=== PATIENT | male | born 2000 | race Hispanic/Latino ===

== ENCOUNTER 2024-05-31 14:03 | Emergency (ER) | payer BC ==
[~2024-05-31] VITALS: Ht 177.8 cm; Wt 99.8 kg
--- NOTE | 2024-05-31 14:15 | ERN ---
ED Note History of Present Illness Stated Complaint: CHEST PAINS Chief Complaint: Chest Wall Pain Time Seen by MD: 14:11 Time Seen by Midlevel: 14:12 Dictation: Mr Martin is a 23 year old male with no reported chronic health issues who presented to the Emergency Department this afternoon for evaluation of chest pain. He states that for the past two days he has been having episodes of anterior chest pain. He states that he has sharp chest pain which makes him short of breath. He states that he had similar symptoms last week. He denies having fever, chills, cough, palpitations, edema, abdominal pain, nausea, vom iting, diarrhea, dysuria, diaphoresis, headache, or dizziness. BP at triage elevated to 175/99. His mother states that they have a family history of hypertension and a Lesvia has been told in the past that he has elevated readings. He is not currently taking any medications for this. Allergies: Coded Allergies: No Known Allergies (Unverified Allergy, Unknown, 05/31/24) Past Medical History Past Medical History: No Pertinent History Surgical History: None Surgical History Other: LT TESTTCLE, LT WRIST Family History: HTN Social History: Smokers (Never smoked), Drugs (Denies use of recreational drugs), Negative, Lives with family RN Note Reviewed/Agreed w/PFSH: Yes Review of System Dictation REVIEW OF SYSTEMS: CONSTITUTIONAL: Patient denies fevers, chills, sweats and weight changes. EYES: Patient denies any visual symptoms. EARS, NOSE, AND THROAT: No difficulties with hearing. No symptoms of rhinitis or sore throat. CARDIOVASCULAR: Patient denies palpitations, orthopnea and paroxysmal nocturnal dyspnea. Reports chest pain that is sharp occurring intermittently for the past two days. He states he had similar episodes last week. His mother states he has been told he had elevated blood pressure readings. RESPIRATORY: No dyspnea on exertion, no wheezing or cough. GI: No nausea, vomiting, diarrhea, constipation, abdominal pain, hematochezia or melena. : No urinary hesitancy or dribbling. No nocturia or urinary frequency. No abnormal urethral discharge. MUSCULOSKELETAL: No myalgias or arthralgias. NEUROLOGIC: No chronic headaches, no seizures. Patient denies numbness, tingling or weakness. PSYCHIATRIC: Patient denies problems with mood disturbance. No problems with anxiety. ENDOCRINE: No excessive urination or excessive thirst. DERMATOLOGIC: Patient denies any rashes or skin changes. Initial Vital Sign VS Vital Signs Date Time Temp Pulse Resp B/P (MAP) Pulse Ox O2 Delivery O2 Flow Rate FiO2 05/31/24 14:05 99.5 100 16 175/99 99 Room Air 0 05/31/24 16:07 21 Physical Exam Dictation Vital signs: Reviewed. Temp 99.5 Constitutional: No acute distress. Non-toxic appearing. Accompanied by mother Head/Face: Normocephalic, atraumatic. Eyes: Periorbital areas with no swelling, redness, or edema. Lids and lashes are normal. Conjunctival injection is absent. Sclera anicteric. Pupils equal, round, reactive to light. ENT: Pinnas intact and no signs of trauma or erythema. Ear canals clear and no discharge. TMs no erythema. No nasal discharge or bleeding noted. Oropharynx with no exudate, redness, swelling, masses, exudates, or evidence of obstruction. Uvula midline. Mucous membranes moist. Neck: Trachea midline, no masses palpated, and no cervical lymphadenopathy. No swelling. Supple, full range of motion. Chest/Axilla: No tenderness, no crepitus, no paradoxical movement, no retractions. Cardiovascular: Regular rate, regular rhythm, no murmur, no gallops. Symmetric pulses. No peripheral edema. BP elevated to 175/99. Twelve lead EKG reflects a sinus rhythm without ST elevation or depression. Respiratory: Respirations even and unlabored. Lung sounds clear; no wheezes, ra les or rhonchi. Room air SpO2 99% Gastrointestinal: Inspection is normal. No distention is appreciated. Bowel sounds are normal. No mass or organomegaly . There is no tenderness. No rebound. No rigidity. No voluntary or involuntary guarding. No Conklin's sign. Neurological: Normal speech, gross motor function intact, gross sensory function intact. No focal weakness/Paresthesia. Musculoskeletal/Extremities: All extremities have full range of motion, no pain or tenderness on palpation. Symmetric pulses. Integumentary: Intact. Skin is normal color, warm and dry. Cap refill less than 2 seconds. Results (Laboratory/Radiology) Laboratory/Radiology Laboratory Tests Test 05/31/24 14:21 05/31/24 15:00 Influenza Type A Antigen Negative For Type A Influenza Type B Antigen Negative For Type B SARS-CoV-2, RNA, NAAT NEGATIVE SARS CoV-2 White Blood Count 7.1 K/uL (4.8-10.8) Red Blood Count 5.16 MIL/uL (4.50-6.20) Hemoglobin 15.7 g/dL (14.0-18.0) Hematocrit 45.5 % (42-54) Mean Corpuscular Volume 88.2 fL (80-100) Mean Corpuscular Hemoglobin 30.4 pg (27.0-33.0) Mean Corpuscular Hemoglobin Concent 34.5 g/dL (32.0-36.0) Red Cell Distribution Width 11.6 % (11.0-15.5) Platelet Count 265 K/uL (130-400) Mean Platelet Volume 10.4 fL (7.5-10.5) Immature Granulocyte % (Auto) 0.3 % (0-1) Neutrophils (%) (Auto) 54.8 % (40.0-77.0) Lymphocytes (%) (Auto) 32.6 % (21.0-51.0) Monocytes (%) (Auto) 7.6 % (3.0-13.0) Eosinophils (%) (Auto) 4.0 % (0.0-8.0) Basophils (%) (Auto) 0.7 % (0.0-5.0) Neutrophils # (Auto) 3.9 K/uL (1.8-7.7) Lymphocytes # (Auto) 2.3 K/uL (1.0-4.8) Monocytes # (Auto) 0.5 K/uL (0.1-1.0) Eosinophils # (Auto) 0.28 K/uL (0.00-0.70) Basophils # (Auto) 0.05 K/uL (0.00-0.20) Absolute Immature Granulocyte (auto 0.02 K/uL (0-1) Nucleated Red Blood Cells 0.0 % (0.0-0.19) Sodium Level 141 mmol/L (136-145) Potassium Level 4.1 mmol/L (3.5-5.1) Chloride Level 102 mmol/L (101-111) Carbon Dioxide Level 34 mmol/L (21-32) H Blood Urea Nitrogen 12 mg/dL (7-18) Creatinine 1.0 mg/dL (0.5-1.3) Glomerular Filtration Rate Calc 110 mL/min (>90) Random Glucose 93 mg/dL (70-105) Total Calcium 9.0 mg/dL (8.5-10.1) Troponin I High Sensitivity < 4 ng/L (4-75) L Labs Reviewed?: Yes EKG Comment: EKG Interpretation: Time Reviewed:1413 Ventricular rate: [92] bpm MA Interval: 141 ms QRS duration: [address] segment elevation or depression. Clinical impression: sinus rhythm EKG Reviewed and interpreted by: Dr. Rosa Max X-RAY Comment: PATIENT: LESVIA MARTIN JR MR#: [id number] : 2000 SEX: M AGE: 23 LOCATION: [facility] ORDER 13 STATUS: REG ER REPORT#: [id number] SERVICE 12 REASON: chest pain/sob ORDERING PHYSICIAN: GINNA JIMENEZ NP PROCEDURE: CXR1VW - CHEST 1VW CHEST 1VW REASON: chest pain/sob COMPARISON: None. FINDINGS: Single view of the chest was obtained. Lungs are clear. Heart size is normal. There is no pulmonary vascular congestion. Mediastinum and bony thorax appear unremarkable. IMPRESSION: 1. Normal single view chest x-ray. DICTATED BY: PRAVIN CLARKE MD DATE: 05/31/241442 ELECTRONICALLY SIGNED BY: PRAVIN CLARKE MD DATE: 05/31/241444 ED Course ED Course Orders Procedure Category Date Status Time 12 Lead Ekg Tracing- EKG 05/31/24 Complete Technical 14:11 Chest 1vw RAD 05/31/24 Resulted 14:13 Influenza Type A & B, LAB 05/31/24 Complete Rapid 14:14 Covid Rna Naat LAB 05/31/24 Complete 14:14 Ketorolac PHA 05/31/24 Complete Tromethamine 30mg/Ml 14:30 Cbc With Differential LAB 05/31/24 Complete 14:51 Basic Metabolic Panel LAB 05/31/24 Complete 14:51 Troponin I High LAB 05/31/24 Complete Sensitivity 14:51 Current Medications Medications (Trade) Dose Ordered Sig/Ivory Route PRN Reason Start Time Stop Time Status Last Admin Dose Admin Ketorolac Tromethamine (toRADol) 30 mg ONCE ONCE IM 05/31/24 14:30 05/31/24 14:31 DC 05/31/24 14:31 Vital Signs Date Time Temp Pulse Resp B/P (MAP) Pulse Ox O2 Delivery O2 Flow Rate FiO2 05/31/24 16:07 98.6 74 20 119/87 100 Room Air* 0 21 05/31/24 14:05 99.5 100 16 175/99 99 Room Air 0 uneventful ED course. 12 lead EKG reflects a sinus rhythm without ST elevation. CXR clear. No elevation of WBC. No electrolyte derangement. Troponin negative. Valadez virus SARS antigen and influenza A/B negative. He received dose Toradol IM x 1. He denies CP or SOB. He was provided with copies of EKG, lab, and CXR to follow up with PCP. BP readings are elevated and he states that he has been told they were high in the past. He will follow up with PCP. HEART Score Response (Comments) Value History: Low suspicion (0) 0 EKG: Normal 0 Age: < 45yrs (0) 0 Risk Factors: No known risk factors (0) 0 Initial Troponin: Normal limit (0) 0 HEART Score Risk: Low Risk for MACE (1-3) Total 0 Medical Decision Making MDM MDM: Differential diagnosis: CAP, ACS, influenza, COVID Rationale: Tests considered and ordered secondary to shared decision making include: CXR, EKG, labs Previous outside records reviewed: Old ER visits. Risk of complication and/or morbidity or mortality of patient management: None Medications-Per medication reconciliation Need for hospitalization: Patient does not meet criteria for hospitalization. Need for emergency major/minor surgery: No There are no social concerns with this patient. Prescription drug management: N/A Prescriptions will include symptomatic care Patient's prior external medical records from other ER visits were reviewed by me as indicated. Prior testing and results from previous visits were reviewed. Prior tests were taken into account with medical decision making and resource utilization, independent historian/historians were used to obtain complete medical history. I independently interpreted the test that were performed, results were reviewed by me and considered findings on radiology if ordered. Medical management and examination interpretation discussions were had by me with other qualified healthcare professionals as indicated for the patient's care. DX & DISP Disposition: Discharge Departure Impression: Primary Impression: Chest wall pain Additional Impressions: Elevated blood pressure reading, Elevated blood pressure readings Condition: Stable Additional Instructions: Rest. Keep log of blood pressure readings. Follow up with your primary care physician in the next 2-3 days. Take copies of your EKG, labs, and x-ray. May take [id number] Tylenol or ibuprofen for chest wall pain. Return to the emergency department for any worsening of symptoms or concerns. Referrals: LUCIA GRANT MD (PCP) Time of Disposition: 16:10 ATTESTATION BY PHYSICIAN I PERFORMED THE SUBSTANTIVE PORTION OF THE VISIT. I HAVE REVIEWED AND PERSONALLY MADE AND APPROVED THE MANAGEMENT PLAN THAT IS DOCUMENTED IN THE NOTE BY MYSELF FOR THE A PP. I ACKNOWLEDGED FOR RESPONSIBILITY FOR THE PATIENT'S MANAGEMENT PLAN. GINNA JIMENEZ NP May 31, 2024 14:15 FAUSTO MAX MD Jun 01, 2024 07:44
--- NOTE | 2024-05-31 14:17 | EKG ---
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
[2024-05-31] MEDS: ketOROlac 30MG VIAL (30MG/ML) IM ONE (14:31)
--- NOTE | 2024-05-31 14:45 | HMCIMG ---
CHEST 1VW REASON: chest pain/sob COMPARISON: None. FINDINGS: Single view of the chest was obtained. Lungs are clear. Heart size is normal. There is no pulmonary vascular congestion. Mediastinum and bony thorax appear unremarkable. IMPRESSION: 1. Normal single view chest x-ray.
[2024-05-31 14:51] LABS: SARS-CoV-2, RNA, NAAT NEGATIVE SARS CoV-2 (NEGATIVE)
[2024-05-31 14:58] LABS: INFLUENZA TYPE A Negative For Type A (NEGATIVE); INFLUENZA TYPE B Negative For Type B (NEGATIVE)
[2024-05-31 15:07] LABS: BASOPHILS # (AUTO) 0.05 K/uL (0.00-0.20); BASOPHILS % (AUTO) 0.7 % (0.0-5.0); EOSINOPHILS # (AUTO) 0.28 K/uL (0.00-0.70); HEMATOCRIT 45.5 % (42-54); IMMATURE GRANULOCYTE ABSOLUTE 0.02 K/uL (0-1); LYMPHOCYTES # (AUTO) 2.3 K/uL (1.0-4.8); LYMPHOCYTES % (AUTO) 32.6 % (21.0-51.0); MEAN CORPUSCULAR HEMOGLOBIN 30.4 pg (27.0-33.0); MEAN CORPUSCULAR HGB CONC 34.5 g/dL (32.0-36.0); MEAN CORPUSCULAR VOLUME 88.2 fL (80-100); MONOCYTES # (AUTO) 0.5 K/uL (0.1-1.0); MONOCYTES % (AUTO) 7.6 % (3.0-13.0); NEUTROPHILS # (AUTO) 3.9 K/uL (1.8-7.7); NEUTROPHILS % (AUTO) 54.8 % (40.0-77.0); PLATELET COUNT (AUTO) 265 K/uL (130-400); RED BLOOD CELL COUNT(AUTO) 5.16 MIL/uL (4.50-6.20); RED CELL DISTRIBUTION WIDTH 11.6 % (11.0-15.5); WHITE BLOOD COUNT (AUTO) 7.1 K/uL (4.8-10.8)
[2024-05-31 15:29] LABS: POTASSIUM 4.1 mmol/L (3.5-5.1)
[2024-05-31 16:07] VITALS: BP 119/87; PULSE 74; RESP 20; TEMP 98.6; O2SAT 100
== END 2024-05-31 16:16 | disposition home or self-care (01) ==
LOC: EDH 14:03
DX: R07.89 Other chest pain (principal); R03.0 Elevated blood-pressure reading, without diagnosis of hypertension; Z20.822 Contact with and (suspected) exposure to COVID-19
CPT/HCPCS: 99284; 71045; 87635; 84484; 80048; 85025; 87804 ×2; 36415; 96372; 93005; J1885